=== PATIENT | female | born 1970 | race Two or more races ===

== ENCOUNTER 2016-08-08 16:58 | Emergency (ER) | payer MEDICAID ==
[~2016-08-08] VITALS: Ht 152.4 cm; Wt 54.4 kg
[2016-08-08] MEDS ORDERED: PROP10TA29 (17:19)
[2016-08-08] MEDS ORDERED: SUMA100T PO (17:19)
[2016-08-08] MEDS ORDERED: METOCLOPRAMIDE HCL 10 MG/2 ML VIAL IV ONE (17:30)
[2016-08-08] MEDS ORDERED: IV NS 0.9% 500 ML BAG IV ONE (17:30)
[2016-08-08] MEDS ORDERED: diphenhydrAMINE HCL 50 MG/ML VIAL IV ONE (17:30)
[2016-08-08] MEDS ORDERED: diphenhydrAMINE HCL 50 MG/ML VIAL ONE (17:58)
[2016-08-08] MEDS ORDERED: METOCLOPRAMIDE HCL 10 MG/2 ML VIAL ONE (17:58)
[2016-08-08] MEDS ORDERED: IV NS 0.9% 500 ML IV ONE (17:58)
[2016-08-08] MEDS ORDERED: IV SET PRIMARY 1 EA INFUS.SET MC ONE (17:58)
[2016-08-08 18:59] VITALS: BP 128/78
== END 2016-08-08 18:59 | disposition home or self-care (01) ==
LOC: ER 17:19
DX: R51 Headache (principal)
CPT/HCPCS: 70450; 96374; 96375; 99285; A4606; J1200; J2765; J7040; Z7610

== ENCOUNTER 2019-03-30 14:52 | Emergency (ER) | payer MEDICAID ==
[~2019-03-30] VITALS: Ht 152.4 cm; Wt 54.4 kg
[~2019-03-30 14:52] MED LIST: PROP10TA68; SUMA100T PO
--- NOTE | 2019-03-30 15:20 | NUR ---
BIB DAUGHTER, R INDEX FINGER LAC WHILE WASHING DISHES, 10/10 PS, LAST TDAP WAS 3 MONTHS AGO, TO ER BED 10, HOOKED TO MONITOR, PROVIDED W WARM BLANKET, NATALY ENCARNACION AT BEDSIDE
[2019-03-30] MEDS ORDERED: TDAP [DIPH/PERTUSSIS/TET] 0.5 ML VIAL IM ONE ×2 (15:30→15:49)
[2019-03-30] MEDS ORDERED: HYDROCODONE/APAP 5/325MG 1 EACH TABLET PO ONE (15:30)
[2019-03-30] MEDS ORDERED: LIDOCAINE 2% 20 ML MDV TP ONE (15:30)
[2019-03-30] MEDS ORDERED: LIDOCAINE 2% 20 ML MDV ONE (15:48)
[2019-03-30] MEDS ORDERED: HYDROCODONE/APAP 5/325MG 1 EACH TABLET ONE (15:49)
--- NOTE | 2019-03-30 16:38 | NUR ---
NATALY ENCARNACION AT BEDSIDE FOR SUTURING
[2019-03-30 16:53] VITALS: BP 136/72
[2019-03-30] MEDS ORDERED: BACITRACIN ZINC OINT PACKET 1 EA PACKET TP ONE (17:00)
--- NOTE | 2019-03-30 17:08 | NUR ---
Patient discharged to home in stable condition. Written and verbal after care instructions given. Patient verbalizes understanding of instruction.
== END 2019-03-30 17:09 | disposition home or self-care (01) ==
LOC: ER 14:52
DX: S61.411A Laceration without foreign body of right hand, initial encounter (principal); W25.XXXA Contact with sharp glass, initial encounter; Y93.G1 Activity, food preparation and clean up; Y92.090 Kitchen in other non-institutional residence as the place of occurrence of the external cause; Y99.8 Other external cause status; Z98.890 Other specified postprocedural states; Z79.899 Other long term (current) drug therapy
CPT/HCPCS: 12001; 90471; 90715; 99283; A6403; J3490

== ENCOUNTER → 2019-04-06 | Emergency (ER) | payer MEDICAID ==
[~2019-04-06] VITALS: Ht 152.4 cm; Wt 55.8 kg
[2019-04-06 14:30] VITALS: BP 120/74
--- NOTE | 2019-04-06 14:48 | NUR ---
DC HOME INTRUCTION GIVEN AGREES TO CALL PMD IN 2 DAYS VERBALIZED UNDERSTANDING
== END | disposition home or self-care (01) ==
LOC: ER 14:25
DX: S61.411D Laceration without foreign body of right hand, subsequent encounter (principal); Z98.51 Tubal ligation status; X58.XXXD Exposure to other specified factors, subsequent encounter

== ENCOUNTER 2019-05-16 14:59 | Inpatient (IN) | payer MEDICAID ==
[~2019-05-16] VITALS: Ht 152.4 cm; Wt 56.2 kg
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
[2019-05-16] MEDS ORDERED: KETOROLAC TROMETHAMINE 15 MG/ML VIAL ONE (16:56)
[2019-05-16] MEDS ORDERED: ONDANSETRON HCL/PF 4 MG/2 ML VIAL ONE (16:56)
[2019-05-16 17:00] LABS: BASOPHILS % (AUTO) 0.5 % (0.0-2.0); EOSINOPHILS % (AUTO) 1.5 % (0.0-6.0); HEMATOCRIT 30 % (33-45); HEMOGLOBIN 9.5 g/dL (11.5-14.8); LYMPHOCYTES # (AUTO) 1.5 /CMM (0.8-4.8); LYMPHOCYTES % (AUTO) 19.9 % (20.0-44.0); MEAN CORPUSCULAR HGB CONC 32 g/dl (31.0-36.0); MEAN CORPUSCULAR VOLUME 76 fL (82-100); MONOCYTES # (AUTO) 0.4 /CMM (0.1-1.30); MONOCYTES % (AUTO) 5.4 % (2.0-12.0); NEUTROPHILS # (AUTO) 5.4 /CMM (1.8-8.9); NEUTROPHILS % (AUTO) 72.7 % (43.0-81.0); PLATELET COUNT (AUTO) 473 /CMM (150-450); RED BLOOD CELL COUNT(AUTO) 3.95 MIL/uL (4.0-5.2); WHITE BLOOD COUNT (AUTO) 7.4 K/uL (4.3-11.0)
[2019-05-16] MEDS ORDERED: IV NS 0.9% 1,000 ML BAG IV ONE (17:00)
[2019-05-16] MEDS ORDERED: KETOROLAC TROMETHAMINE INJ 30 MG/ML VIAL IV ONE (17:00)
[2019-05-16] MEDS ORDERED: ONDANSETRON HCL/PF 4 MG/2 ML VIAL IVP ONE (17:00)
[2019-05-16 17:07] LABS: CALCIUM, SERUM 8.7 mg/dL (8.5-10.1); CREATININE 4.2 mg/dL (0.6-1.3)
[2019-05-16 17:13] LABS: ALBUMIN 3.8 g/dL (3.4-5.0); BILIRUBIN,DIRECT 0.1 mg/dL (0.0-0.2); BILIRUBIN,TOTAL 0.2 mg/dL (0.2-1.0); TOTAL PROTEIN, SERUM 7.9 g/dL (6.4-8.2)
--- NOTE | 2019-05-16 17:20 | NUR ---
ASKED HOUSE SUP FOR MS BED
--- NOTE | 2019-05-16 17:25 | NUR ---
CALLED [employer]. 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
[2019-05-16] MEDS ORDERED: IBUP-1955 PO (17:55)
--- NOTE | 2019-05-16 17:55 | NUR ---
DR PICKARD AT BEDSIDE FOR EVAL.
[2019-05-16 17:59] LABS: BILIRUBIN,URINE Negative (NEGATIVE); BLOOD, URINE Moderate Ery/uL (NEGATIVE); COLOR,URINE Yellow (YELLOW); KETONES,URINE Negative (NEGATIVE); LEUKOCYTE ESTERASE ,URINE Negative (NEGATIVE); NITRITE, URINE Negative (NEGATIVE); PROTEIN,URINE Negative (NEGATIVE); UGLUCOSE Negative (NEGATIVE); UROBILINOGEN,URINE 0.2 EU/dL (0.2)
[2019-05-16 18:00] LABS: APPEARANCE,URINE SLIGHTLY HAZY (CLEAR)
[2019-05-16] MEDS ORDERED: ZOLPIDEM TARTRATE 5 MG TABLET PO PRN (18:00)
[2019-05-16] MEDS ORDERED: MAGNESIUM HYDROXIDE 30 ML UDC PO PRN (18:00)
[2019-05-16] MEDS ORDERED: Z GUARD REMEDY 2 OZ OINT TP PRN (18:00)
[2019-05-16] MEDS ORDERED: MAG HYDROX/AL HYDROX/SIMETH 30 ML UDC PO PRN (18:00)
[2019-05-16 18:13] LABS: BACTERIA,URINE Few /HPF (None Seen); WBC,URINE 0-2 /HPF (0-3)
[2019-05-16 18:14] LABS: SQUAMOUS EPITHELIAL CELL,UR Moderate /HPF (None Seen)
--- NOTE | 2019-05-16 18:35 | NUR ---
BED MS 323-1, REPORT GIVEN TO TONY ALVAREZ FOR MARIELA.
--- NOTE | 2019-05-16 19:03 | NUR ---
PATIENT TRANSFERRED TO ROOM 323-1 IN STABLE CONDITION.
[2019-05-16 19:30] VITALS: BP 126/77
[2019-05-16] MEDS: IV NS 0.9% 1,000 ML IV SCH (19:50)
[2019-05-16 20:00] VITALS: BP 126/77
[2019-05-16] MEDS: HYDROCODONE/APAP 5/325MG 1 EACH TABLET PO PRN (21:11)
--- NOTE | 2019-05-16 22:04 | NUR ---
RN NOTES ADMITTED PATIENT FROM ED DUE TO NAUSEA/VOMITING AND HEADACHE, ALERT AND ORIENTED X4, STABLE ON ROOM AIR, LUNG SOUNDS ARE CLEAR, ABDOMEN SOFT AND NON-TENDER, COMPLAINING VOMITING, AND PAIN IN THE HEAD, RADIATING DOWN TO BACK OF NECK, UNABLE TO EAT, RECEIVED ZOFRAN AND NS BOLUS IN ED. INDEPENDENT WITH BOWEL AND BLADDER, AMBULATORY. PATIENT REQUESTING IV PAIN MEDICATION DUE TO VOMITING. NOTIFIED DR. JASSO, SANITATION SUPERVISOR MD. PER MD, NO IV PAIN MEDICATION DUE TO INCREASED LEVEL OF BUN AND CREATININE.
[2019-05-16] MEDS: ONDANSETRON HCL/PF 4 MG/2 ML VIAL IVP PRN (23:09)
[2019-05-17] MEDS: ACETAMINOPHEN 325 MG TABLET PO PRN ×3 (00:58→17:23)
[2019-05-17] MEDS: IV NS 0.9% 1,000 ML IV SCH (03:47)
--- NOTE | 2019-05-17 06:00 | NUR ---
RN NOTES PM SHIFT PATIENT ALERT AND AWAKE, ROOM AIR, CONSTANTLY COMPLAINING OF HEADACHE, GIVEN TYLENOL AND NORCO,, ICE APPLIED, GIVEN ZOFRAN, NO VOMITING, GIVEN ICE CHIPS AND CRACKERS, REPORTED SOME RELIEF. CONTINUE IVF, AM LABS, MONITOR KIDNEY FUNCTION.
[2019-05-17 07:07] LABS: BASOPHILS % (AUTO) 0.6 % (0.0-2.0); EOSINOPHILS % (AUTO) 2.7 % (0.0-6.0); HEMATOCRIT 26 % (33-45); HEMOGLOBIN 8.2 g/dL (11.5-14.8); LYMPHOCYTES # (AUTO) 1.6 /CMM (0.8-4.8); LYMPHOCYTES % (AUTO) 29.5 % (20.0-44.0); MEAN CORPUSCULAR HGB CONC 32 g/dl (31.0-36.0); MEAN CORPUSCULAR VOLUME 76 fL (82-100); MONOCYTES # (AUTO) 0.4 /CMM (0.1-1.30); MONOCYTES % (AUTO) 7.6 % (2.0-12.0); NEUTROPHILS # (AUTO) 3.3 /CMM (1.8-8.9); NEUTROPHILS % (AUTO) 59.6 % (43.0-81.0); PLATELET COUNT (AUTO) 395 /CMM (150-450); RED BLOOD CELL COUNT(AUTO) 3.37 MIL/uL (4.0-5.2); WHITE BLOOD COUNT (AUTO) 5.6 K/uL (4.3-11.0)
[2019-05-17 07:25] LABS: CALCIUM, SERUM 7.7 mg/dL (8.5-10.1); CREATININE 2.9 mg/dL (0.6-1.3); MAGNESIUM 2.2 mg/dL (1.8-2.4); PHOSPHORUS 4.7 mg/dL (2.5-4.9); POTASSIUM 4.1 mmol/L (3.5-5.1)
[2019-05-17 07:42] VITALS: BP 129/74
--- NOTE | 2019-05-17 07:45 | NUR ---
M/S RN NOTES PATIENT RESTING, LYING IN BED. NO RESPIRATORY DISTRESS NOTED, C/O OF HEADACHE 5/10 BUT TOLERABLE AT THIS TIME. PATIENT NAUSEATED ASKING FOR MEDICATION. WILL GIVE MEDICATION ORDERED. SKIN WARM TO TOUCH. IV ACCESS SITE INTACT AND PATENT. PATIENT'S NEEDS ATTENDED. BED ON LOWEST LOCKED POSITION, CALL LIGHT WITHIN REACH. WILL CONTINUE TO MONITOR.
[2019-05-17] MEDS: ONDANSETRON HCL/PF 4 MG/2 ML VIAL IVP PRN ×2 (08:21→17:23)
[2019-05-17] MEDS: IV NS 0.9% 1,000 ML IV PRN ×2 (09:53→23:11)
[2019-05-17] MEDS: HYDROCODONE/APAP 5/325MG 1 EACH TABLET PO PRN ×2 (14:14→22:16)
[2019-05-17] MEDS ORDERED: INFLUENZA VACCINE 2019-20 0.5 ML DISP.SYRIN IM ONE (14:30)
[2019-05-17 16:00] VITALS: BP 119/75
--- NOTE | 2019-05-17 18:37 | NUR ---
M/S RN NOTES PATIENT AWAKE IN BED, NO RESPIRATORY DISTRESS. PATIENT STILL COMPLAINING OF A HEADACHE BUT TOLERABLE AT THIS TIME. PATIENT VOMITED X1, MODERATE AMOUNT. ZOFRAN GIVEN PRIOR BUT INEFFECTIVE. IV NS INFUSING AT 125ML/HR ON THE LAC #20G INTACT AND PATENT, NO REDNESS, NO INFILTRATION. PATIENT'S NEEDS ATTENDED. BED ON LOWEST LOCKED POSITION, CALL LIGHT WITHIN REACH. WILL ENDORSE TO ONCOMING NURSE.
[2019-05-17 20:00] VITALS: BP 124/74
--- NOTE | 2019-05-17 20:32 | NUR ---
M/RN AT 1930, RECEIVED PATIENT IN BED AWAKE, ALERT, ORIENTED, NO C/O PAIN AT THIS TIME, BUT STILL NAUSEOUS AND WILLING TO WAIT FOR THE NEXT NAUSEA MEDICATION DUE, NO DISTRESS NOTED, CALL LIGHT IN REACH. WILL MONITOR.
--- NOTE | 2019-05-18 01:16 | NUR ---
MS/RN PATIENT IS SLEEPING AT THIS TIME, APPEAR COMFORTABLE, NO SIGNS OF DISTRESS NOTED, CALL LIGHT IN REACH. WILL CONTINUE TO MONITOR.
[2019-05-18] MEDS: IV NS 0.9% 1,000 ML IV PRN ×2 (06:18→18:28)
[2019-05-18] MEDS: ACETAMINOPHEN 325 MG TABLET PO PRN (06:23)
--- NOTE | 2019-05-18 06:23 | NUR ---
MS/RN PATIENT IS AWAKE AT THIS TIME, C/O MILD HEADACHE, REQUESTED FOR TYLENOL. MED GIVEN. ALL NEEDS ATTENDED AT THIS TIME, WILL CONTINUE TO MONITOR.
[2019-05-18 07:02] LABS: BASOPHILS % (AUTO) 0.3 % (0.0-2.0); EOSINOPHILS % (AUTO) 2.5 % (0.0-6.0); HEMATOCRIT 25 % (33-45); HEMOGLOBIN 7.9 g/dL (11.5-14.8); LYMPHOCYTES % (AUTO) 14.9 % (20.0-44.0); MEAN CORPUSCULAR HGB CONC 32 g/dl (31.0-36.0); MEAN CORPUSCULAR VOLUME 76 fL (82-100); MONOCYTES # (AUTO) 0.3 /CMM (0.1-1.30); MONOCYTES % (AUTO) 4.1 % (2.0-12.0); NEUTROPHILS # (AUTO) 5.4 /CMM (1.8-8.9); NEUTROPHILS % (AUTO) 78.2 % (43.0-81.0); PLATELET COUNT (AUTO) 369 /CMM (150-450); RED BLOOD CELL COUNT(AUTO) 3.27 MIL/uL (4.0-5.2); WHITE BLOOD COUNT (AUTO) 6.9 K/uL (4.3-11.0)
--- NOTE | 2019-05-18 07:10 | NUR ---
MS RN OPENING NOTES Received Patient awake and resting in bed. A/O x 4. VS stable with no acute distress. Breathing even and unlabored on room air with no respiratory distress. Patient stated headache at this time. Will intervene as ordered. 20g PIV on LAC clean, dry, intact and flushing well with NS running at 125ml/hr. Safety precautions in place. Bed locked and set to lowest position with side rails x 2 up. Call light within reach. Will continue to monitor.
[2019-05-18 07:18] LABS: CALCIUM, SERUM 7.8 mg/dL (8.5-10.1); CREATININE 1.7 mg/dL (0.6-1.3); POTASSIUM 4.3 mmol/L (3.5-5.1)
--- NOTE | 2019-05-18 07:45 | NUR ---
ms rn received on bed, awake,alert,oriented x4,not in any form of distress,respirations even and unlabored,no sob noted, complain of nausea, will monitor patient.
--- NOTE | 2019-05-18 07:47 | NUR ---
MS RN NOTES Endorsed plan of care to [place] RN. PT Eval order noted and carried out, per MD. Patient stated headache. Provided hot pack for back of neck. Otherwise Patient in stable condition.
[2019-05-18 08:00] VITALS: BP 155/85
[2019-05-18] MEDS: ONDANSETRON HCL/PF 4 MG/2 ML VIAL IVP PRN ×3 (08:25→18:28)
--- NOTE | 2019-05-18 08:55 | NUR ---
ms rn complain of nausea, zofran 40mg iv given, will monitor patient.
--- NOTE | 2019-05-18 09:05 | NUR ---
ms rn breakfast served,tolerated well.
[2019-05-18] MEDS: HYDROCODONE/APAP 5/325MG 1 EACH TABLET PO PRN ×2 (12:36→17:05)
[2019-05-18] MEDS ORDERED: CYCLOBENZAPRINE 10 MG TABLET PO ONE (18:00)
--- NOTE | 2019-05-18 18:37 | NUR ---
ms rn on bed, no distress noted,family at bedside.
[2019-05-18 20:00] VITALS: BP 130/78
--- NOTE | 2019-05-19 01:25 | NUR ---
MS/RN PATIENT IS SLEEPING AT THIS TIME, APPEAR COMFORTABLE, NO SIGNS OF DISTRESS NOTED, CALL LIGHT IN REACH. WILL CONTINUE TO MONITOR.
[2019-05-19] MEDS: IV NS 0.9% 1,000 ML IV PRN ×3 (02:04→21:09)
--- NOTE | 2019-05-19 06:13 | NUR ---
MS/RN PATIENT IS STILL SLEEPING AT THIS TIME, APPEAR COMFORTABLE, NO SIGNS OF DISTRESS NOTED, CALL LIGHT IN REACH. ALL NEEDS ATTENDED AT THIS TIME, WILL CONTINUE TO MONITOR.
[2019-05-19 06:22] LABS: BASOPHILS % (AUTO) 0.6 % (0.0-2.0); HEMATOCRIT 23 % (33-45); HEMOGLOBIN 7.2 g/dL (11.5-14.8); LYMPHOCYTES # (AUTO) 1.6 /CMM (0.8-4.8); LYMPHOCYTES % (AUTO) 25.6 % (20.0-44.0); MEAN CORPUSCULAR HGB CONC 32 g/dl (31.0-36.0); MEAN CORPUSCULAR VOLUME 76 fL (82-100); MONOCYTES # (AUTO) 0.3 /CMM (0.1-1.30); MONOCYTES % (AUTO) 4.7 % (2.0-12.0); NEUTROPHILS # (AUTO) 4.2 /CMM (1.8-8.9); NEUTROPHILS % (AUTO) 65.1 % (43.0-81.0); PLATELET COUNT (AUTO) 335 /CMM (150-450); WHITE BLOOD COUNT (AUTO) 6.4 K/uL (4.3-11.0)
--- NOTE | 2019-05-19 07:33 | NUR ---
MS RN OPENING NOTE PATIENT IN BED RESTING COMFORTABLY. PATIENT IN NO ACUTE DISTRESS. NO SOB NOTED. PATIENT BREATHING IS EVEN AND UNLABORED. NEEDS AND CONCERNS ADDRESSED. NO FACIAL GRIMACING NOTE. PATIENT STATES NO PAIN AT THIS TIME. PATIENT BED IS LOCKED AND IN LOWEST POSITION. CALL LIGHT WITHIN REACH. WILL CONTINUE TO MONITOR.
[2019-05-19 08:00] VITALS: BP 122/78
[2019-05-19] MEDS: ONDANSETRON HCL/PF 4 MG/2 ML VIAL IVP PRN ×2 (08:03→19:01)
[2019-05-19 08:22] LABS: CALCIUM, SERUM 7.7 mg/dL (8.5-10.1); CREATININE 1.4 mg/dL (0.6-1.3)
[2019-05-19] MEDS: ACETAMINOPHEN 325 MG TABLET PO PRN ×2 (09:23→19:01)
[2019-05-19] MEDS: HYDROCODONE/APAP 5/325MG 1 EACH TABLET PO PRN (11:59)
[2019-05-19 16:00] VITALS: BP 124/72
--- NOTE | 2019-05-19 18:26 | NUR ---
MS RN CLOSING NOTE PATIENT IN BED RESTING COMFORTABLY. PATIENT IN NO ACUTE DISTRESS. NO SOB NOTED. PATIENT BREATHING IS EVEN AND UNLABORED. PATIENT FAMILY AND FRIENDS AT THE BEDSIDE. PATIENT IV INTACT. PATIENT IN NO PAIN AT THIS TIME. PATIENT NEEDS AND CONCERNS ADDRESSED. PATIENT KEPT CLEAN, DRY, AND COMFORTABLE THROUGHOUT SHIFT. PATIENT BED IS LOCKED AND IN LOWEST POSITION. SAFETY PRECAUTIONS IN PLACE. CALL LIGHT WITHIN REACH. WILL ENDORSE CARE TO PM SHIFT FOR MARIELA.
--- NOTE | 2019-05-19 19:00 | NUR ---
MS RN NOTE RECEIVED PT IN STABLE CONDITION A/O X4, CURRENTLY SPEAKING WITH GUESTS. NO SIGNS OF SOB OR DISTRESS, NO C/O PAIN. IV IN R AC #20 WITH IVF INFUSING. ALL CURRENT NEEDS ATTENDED TO. BED LOW, LOCKED, UPPER RAILS UP AND CALL LIGHT WITHIN REACH. WILL CONT. TO MONITOR.
[2019-05-19 20:00] VITALS: BP 137/82
[2019-05-19 20:49] VITALS: BP 137/82
[2019-05-20] MEDS: HYDROCODONE/APAP 5/325MG 1 EACH TABLET PO PRN ×2 (00:58→05:40)
[2019-05-20] MEDS: IV NS 0.9% 1,000 ML IV PRN (05:27)
[2019-05-20 06:15] LABS: BASOPHILS % (AUTO) 0.9 % (0.0-2.0); EOSINOPHILS % (AUTO) 4.1 % (0.0-6.0); HEMATOCRIT 24 % (33-45); HEMOGLOBIN 7.7 g/dL (11.5-14.8); LYMPHOCYTES # (AUTO) 1.8 /CMM (0.8-4.8); LYMPHOCYTES % (AUTO) 37.1 % (20.0-44.0); MEAN CORPUSCULAR HGB CONC 32 g/dl (31.0-36.0); MEAN CORPUSCULAR VOLUME 76 fL (82-100); MONOCYTES # (AUTO) 0.2 /CMM (0.1-1.30); MONOCYTES % (AUTO) 5.1 % (2.0-12.0); NEUTROPHILS # (AUTO) 2.6 /CMM (1.8-8.9); NEUTROPHILS % (AUTO) 52.8 % (43.0-81.0); PLATELET COUNT (AUTO) 339 /CMM (150-450); RED BLOOD CELL COUNT(AUTO) 3.15 MIL/uL (4.0-5.2); WHITE BLOOD COUNT (AUTO) 4.9 K/uL (4.3-11.0)
--- NOTE | 2019-05-20 06:20 | NUR ---
MS RN NOTE PT REMAINS IN STABLE CONDITION A/O X4, CURRENTLY RESTING IN BED. NO SIGNS OF SOB OR DISTRESS, PAIN MANAGED ORDERED BY . IV IN R AC #20 WITH IVF INFUSING. ALL CURRENT NEEDS ATTENDED TO. BED LOW, LOCKED, UPPER RAILS UP AND CALL LIGHT WITHIN REACH. WILL CONT. TO MONITOR AND ENDORSE TO NEXT SHIFT FOR MARIELA.
[2019-05-20 06:21] LABS: CREATININE 0.9 mg/dL (0.6-1.3); POTASSIUM 4.1 mmol/L (3.5-5.1)
[2019-05-20 08:00] VITALS: BP 144/87
[2019-05-20] MEDS: ONDANSETRON HCL/PF 4 MG/2 ML VIAL IVP PRN (08:01)
[2019-05-20] MEDS ORDERED: CYCL5TAB PO (09:00)
[2019-05-20] MEDS ORDERED: ASPIRIN/ACETAMINOPHEN/CAFFEINE 1 EACH TABLET PO ONE (10:00)
--- NOTE | 2019-05-20 14:00 | NUR ---
PAtient cleared for d/c to home by MD. PAtient alert and oriented x4, VS are stable and within baseline.Patient denies nausea/ vomiting and any type of pain. All needs attended prior discharge.All belongings reviewed and valuable form sighed. D/C instructions and education provided; patient verbalized understanding and will f/u with PCP in one week. IV line and ID wrist band removed. Skin intact. PAtient safely transferred to [facility] via wheelchair accompanied by daughter and ARBORIST REPRESENTATIVE Perla RED
== END 2019-05-20 14:00 | disposition home or self-care (01) | DRG 469 ==
LOC: ER 15:01 → MED 18:40
PROVIDERS: ADMIT Family Medicine; ATTEND Family Medicine
DX: N17.0 Acute kidney failure with tubular necrosis (principal); D47.3 Essential (hemorrhagic) thrombocythemia; D63.8 Anemia in other chronic diseases classified elsewhere; N18.9 Chronic kidney disease, unspecified; S16.1XXA Strain of muscle, fascia and tendon at neck level, initial encounter; T39.395A Adverse effect of other nonsteroidal anti-inflammatory drugs [NSAID], initial encounter; R51 Headache; X58.XXXA Exposure to other specified factors, initial encounter; Y93.9 Activity, unspecified; Y92.009 Unspecified place in unspecified non-institutional (private) residence as the place of occurrence of the external cause
CPT/HCPCS: 36415; 80048-TC; 80061-TC; 80076-TC; 81000-TC; 82728-TC; 83540-TC; 83690-TC; 83735-TC; 84100-TC; 84703-TC; 85025-TC; 87081-TC; 97116-TC; 97530-TC; G0378; J1885; J2405; J7030; Q2036

== ENCOUNTER 2023-05-21 08:57 | Emergency (ER) | payer MEDICAID, OTHER ==
[~2023-05-21] VITALS: Ht 152.4 cm; Wt 54.9 kg
[~2023-05-21 08:57] MED LIST changes: +CYCL5TAB PO; -PROP10TA68; -SUMA100T PO
[2023-05-21] MEDS ORDERED: KETOROLAC TROMETHAMINE 15 MG/ML VIAL ONE (09:48)
[2023-05-21] MEDS ORDERED: PROCHLORPERAZINE EDISYLATE 10 MG/2 ML VIAL ONE (09:48)
[2023-05-21] MEDS ORDERED: diphenhydrAMINE HCL 50 MG/ML VIAL ONE (09:49)
[2023-05-21] MEDS ORDERED: IV NS 0.9% 1,000 ML BAG IV ONE (10:00)
[2023-05-21] MEDS ORDERED: diphenhydrAMINE HCL 50 MG/ML VIAL IV ONE (10:00)
[2023-05-21] MEDS ORDERED: PROCHLORPERAZINE EDISYLATE 10 MG/2 ML VIAL IVP ONE (10:00)
[2023-05-21] MEDS ORDERED: KETOROLAC TROMETHAMINE INJ 30 MG/ML VIAL IV ONE (10:00)
[2023-05-21 12:34] VITALS: BP 118/84; TEMP 98.5; O2SAT 100
== END 2023-05-21 12:46 | disposition home or self-care (01) ==
LOC: ER 09:08
DX: R51.9 Headache, unspecified (principal); Z98.890 Other specified postprocedural states; Z79.899 Other long term (current) drug therapy
CPT/HCPCS: 99284; 96374; 96375; 96361; J0780; J1200; J7030; J1885